=== PATIENT | female | born 1950 | race Caucasian/White ===

== ENCOUNTER 2024-04-20 17:50 | Emergency (ER) | payer MEDICARE ==
[~2024-04-20] VITALS: Ht 160 cm; Wt 82.3 kg
[~2024-04-20 17:50] MED LIST: ASPI-1265 PO; ATOR80TA PO; ESOM20TA PO; LACT1TAB15 PO; LISI10TA27 PO; VITD400T PO
[2024-04-20 18:30] VITALS: TEMP 98.9
[2024-04-20] MEDS ORDERED: SULF1TAB49 PO (19:09)
[2024-04-20 19:27] VITALS: BP 166/89; PULSE 78; RESP 16; O2SAT 98
== END 2024-04-20 19:29 | disposition home or self-care (01) ==
LOC: ER 17:50
DX: L02.811 Cutaneous abscess of head [any part, except face] (principal); E78.00 Pure hypercholesterolemia, unspecified; I10 Essential (primary) hypertension; Z88.8 Allergy status to other drugs, medicaments and biological substances; Z79.82 Long term (current) use of aspirin; Z79.899 Other long term (current) drug therapy
CPT/HCPCS: 99283